=== PATIENT | female | born 1970 | race African-American/Black ===

== ENCOUNTER 2021-08-08 08:07 | Emergency (ER) | payer MEDICAID ==
[~2021-08-08] VITALS: Ht 165.1 cm; Wt 77.0 kg
[~2021-08-08 08:07] MED LIST: BENZ-16 MT; CEPH500T MT; IBUP-2029 MT; NAPR-1176 MT
[2021-08-08 09:54] VITALS: BP 117/86
== END 2021-08-08 09:55 | disposition home or self-care (01) ==
LOC: ER 08:38
DX: R07.89 Other chest pain (principal); E11.9 Type 2 diabetes mellitus without complications
CPT/HCPCS: 71045; 93005; 99283

== ENCOUNTER 2021-10-03 07:20 | Emergency (ER) | payer MEDICAID ==
[~2021-10-03] VITALS: Ht 165.1 cm; Wt 76.0 kg
[2021-10-03 07:58] VITALS: BP 125/70
[2021-10-04] MEDS ORDERED: CYCL10TA21 MT (20:10)
[2021-10-04] MEDS ORDERED: MELO-105 MT (20:10)
[2021-10-04] MEDS ORDERED: T3 PO (20:10)
[2021-10-04] MEDS ORDERED: LANC1COM7 (20:10)
[2021-10-04] MEDS ORDERED: INHA1EAC MC (20:10)
[2021-10-04] MEDS ORDERED: LANC-934 TP (20:10)
== END 2021-10-03 11:44 | disposition left against medical advice (07) ==
LOC: ER 07:20
DX: Z53.21 Procedure and treatment not carried out due to patient leaving prior to being seen by health care provider (principal)
CPT/HCPCS: 99281

== ENCOUNTER 2021-10-04 13:35 | Emergency (ER) | payer MEDICAID ==
[~2021-10-04] VITALS: Ht 160 cm; Wt 77.0 kg
[2021-10-04 13:59] VITALS: BP 142/77
[2021-10-04] MEDS ORDERED: KETOROLAC 60MG/2ML VIAL IM ONE (19:15)
[2021-10-04] MEDS ORDERED: LANC1COM7 (20:10)
[2021-10-04] MEDS ORDERED: MELO-105 MT (20:10)
[2021-10-04] MEDS ORDERED: LANC-934 TP (20:10)
[2021-10-04] MEDS ORDERED: INHA1EAC MC (20:10)
[2021-10-04] MEDS ORDERED: T3 PO (20:10)
[2021-10-04] MEDS ORDERED: CYCL10TA21 MT (20:10)
== END 2021-10-04 20:43 | disposition home or self-care (01) ==
LOC: ER 13:35
DX: M54.42 Lumbago with sciatica, left side (principal); E11.9 Type 2 diabetes mellitus without complications; Z79.84 Long term (current) use of oral hypoglycemic drugs
CPT/HCPCS: 96372; 99283; J1885